=== PATIENT | male | born 1965 | race Caucasian/White ===

== ENCOUNTER 2021-03-20 05:28 | Outpatient (RCR) | payer OTHER ==
[~2021-03-20] VITALS: Ht 172.7 cm; Wt 72.7 kg
[~2021-03-20 05:28] MED LIST: ALBU2.5V4 INH; FLUT12AE4 IH; OMEP40CA6 PO; RT-ALBUINH IH
== END 2021-03-20 08:59 | disposition home or self-care (01) ==
LOC: PREOP 05:28
PROVIDERS: ATTEND Surgery
DX: Z01.812 Encounter for preprocedural laboratory examination (principal); K21.9 Gastro-esophageal reflux disease without esophagitis; Z20.822 Contact with and (suspected) exposure to COVID-19
CPT/HCPCS: 87635

== ENCOUNTER 2021-03-25 10:52 | Day surgery (SDC) | payer OTHER ==
[~2021-03-25] VITALS: Ht 173 cm; Wt 73.0 kg
[2021-03-25] MEDS ORDERED: LACTATED RINGERS 1,000 ML IV ONE (10:56)
[2021-03-25 11:05] VITALS: BP 126/81
[2021-03-25] MEDS ORDERED: HURRICAINE EXT TUBE (BENZOCAINE) XX PRN (11:15)
[2021-03-25] MEDS ORDERED: MIDAZOLAM 2 MG/2 ML (VERSED) VIAL ONE (11:22)
[2021-03-25] MEDS ORDERED: PROPOFOL INJECTION 50 ML IV ONE (11:22)
--- NOTE | 2021-03-25 11:24 | Progress Note-Pre Operative ---
Pre-Operative Progress Note H&P Reviewed The H&P was reviewed, patient examined and no changes noted. Date Seen by Provider: Mar 25, 2021 Time Seen by Provider: 11:24 Date H&P Reviewed: Mar 25, 2021 Time H&P Reviewed: 11:24 Pre-Operative Diagnosis: gerd, hx polyps MARSHAL LIND DO Mar 25, 2021 11:24
[2021-03-25 12:05] VITALS: BP 94/56
[2021-03-25 12:10] VITALS: BP 84/56
--- NOTE | 2021-03-25 12:21 | Discharge Inst-Simple/Standard ---
Discharge Inst-Standard Patient Instructions/Follow Up Plan of Care/Instructions/FU: 2 weeks Otoniel Activity as Tolerated: Yes Discharge Diet: Regular Diet MARSHAL LIND DO Mar 25, 2021 12:21
--- NOTE | 2021-03-25 12:22 | Progress Note-Post Operative ---
Post-Operative Progess Note Surgeon (s)/Underwriting Assistant (s) Surgeon MARSHAL LIND DO Underwriting Assistant: na Pre-Operative Diagnosis gerd, hx polyps Post-Operative Diagnosis sliding hiatal hernia, diverticulosis Procedure & Operative Findings Date of Procedure 03/25/21 Procedure Performed/Findings egd c biopsies, colonoscopy Anesthesia Type per network firewall engineer Estimated Blood Loss Estimated blood loss (mL): none Specimens/Packing Specimens Removed antrum, ge MARSHAL LIND DO Mar 25, 2021 12:22
[2021-03-25 12:58] VITALS: BP 99/58
--- NOTE | 2021-03-25 13:51 | Anesthesia-General Post-Op ---
MAC Patient Condition Mental Status/LOC: Same as Preop Cardiovascular: Satisfactory Nausea/Vomiting: Absent Respiratory: Satisfactory Pain: Controlled Complications: Absent Post Op Complications Complications None Follow Up Care/Instructions Patient Instructions None needed. Anesthesiology Discharge Order Discharge Order Patient is doing well, no complaints, stable vital signs, no apparent adverse anesthesia problems. No complications reported per nursing. DENISHA MILLIGAN CRNA Mar 25, 2021 13:51
--- NOTE | 2021-03-25 16:47 | OPERATIVE REPORT ---
DATE OF SERVICE: 03/25/2021 PREOPERATIVE DIAGNOSES: Gastroesophageal reflux disease, history of polyps. POSTOPERATIVE DIAGNOSES: Sliding hiatal hernia, diverticulosis. PROCEDURE: EGD with biopsies, colonoscopy. SURGEON: Marshal Frederick DO ANESTHESIA: Per REFRIGERATING MACHINE OPERATOR. ESTIMATED BLOOD LOSS: None. COMPLICATIONS: None. SPECIMENS: Antrum, GE junction. INDICATIONS: The patient is a 55-year-old male with GERD symptoms and history of polyps. He understands risks and benefits of procedure and wishes to proceed. Consent was signed in the chart. DESCRIPTION OF PROCEDURE: The patient was taken to the endoscopy suite, placed in left lateral recumbent position. Timeout was performed. Scope was inserted in mouth, down the esophagus, stomach and into the duodenum without difficulty. No polyps, masses or ulcerations. Scope was slowly retracted back to stomach where it was further insufflated. Biopsy of the antrum was obtained. No polyps, masses or ulcerations. Scope was retroflexed noting a sliding hiatal hernia small. No other pathology noted. Scope was returned to its normal position, slowly withdrawn to distal esophagus. Biopsy of the GE junction was obtained. No polyps, masses or ulcerations. Scope was slowly retracted back until completely removed. Digital rectal exam was performed and palpable polyps, masses or ulcerations. Scope was inserted in the rectum and advanced all the way to the cecum with minimal difficulty. Prep was adequate. Scope was slowly retracted back. No polyps, masses or ulcerations within the cecum, ascending, transverse, descending and sigmoid colon. The sigmoid colon had some diverticulosis present. Scope was continuously retracted back into the rectum, where it was also retroflexed noting no other pathology. Scope was returned to its normal position, slowly withdrawn until completely removed. The patient tolerated procedure well without any complications. He was taken to recovery room in stable condition. RECOMMENDATIONS: The patient will need repeat colonoscopy in 5 years due to history of polyps. We will follow up on biopsies in a couple of weeks to discuss further management of his GERD symptoms. Job ID: [id number] DocumentID: [id number] Dictated Date: 03/25/2021 12:24:52 Food Order Delivery Runner Date: 03/25/2021 16:47:32 Dictated By: MARSHAL FREDERICK DO
== END 2021-03-25 13:05 | disposition home or self-care (01) ==
LOC: ENDO 10:52
PROVIDERS: ATTEND Surgery
DX: K21.00 Gastro-esophageal reflux disease with esophagitis, without bleeding (principal); K44.9 Diaphragmatic hernia without obstruction or gangrene; K57.30 Diverticulosis of large intestine without perforation or abscess without bleeding; J43.9 Emphysema, unspecified; F17.210 Nicotine dependence, cigarettes, uncomplicated; Z86.010 Personal history of colon polyps; Z79.899 Other long term (current) drug therapy; Z90.89 Acquired absence of other organs
CPT/HCPCS: 88305

== ENCOUNTER → 2022-04-09 | Outpatient (CLI) | payer OTHER ==
[~2022-04-09] MED LIST changes: +ALBU8.5H6 IH; -RT-ALBUINH IH
--- NOTE | 2022-04-09 13:32 | Diagnostic Imaging Report ---
PROCEDURE: MRI lumbar spine without contrast. TECHNIQUE: Multiplanar, multisequence MRI of the lumbar spine was performed without contrast. INDICATION: Chronic low back pain. COMPARISON: None. FINDINGS: Five lumbar-type vertebral bodies are visualized with the last well-formed disc space designated L5-S1. No acute fracture or dislocation is seen in the lumbar spine. There is grade 1-2 anterolisthesis of L5 on S1. Modic type I endplate degenerative changes are present at the L5-S1 level. Modic type I endplate degenerative changes are also present at the T11-T12 level. No suspicious focal osseous lesions. The conus terminates at the L1 level. No masses are seen associated with the conus or nerve roots of the cauda equina. No epidural collections are identified. Multilevel degenerative changes are seen in the lumbar spine with disc bulges, facet hypertrophy, and buckling of the ligamentum flavum. T12-L1: No significant spinal canal or foraminal stenosis. L1-L2: No significant spinal canal or foraminal stenosis. L2-L3: Broad-based disc bulge and facet hypertrophy result in [id number] spinal canal narrowing with no right and mild left foraminal narrowing. L3-L4: Facet hypertrophy and buckling of the ligamentum flavum result in mild spinal canal narrowing and [id number]-pt-wtybgarf bilateral foraminal narrowing. L4-L5: Broad-based disc bulge, facet hypertrophy, and buckling of the ligamentum flavum result in mild spinal canal narrowing and nbzr-qy-hwixmsqz bilateral foraminal narrowing. L5-S1: Broad-based disc bulge, facet hypertrophy, and buckling of the ligamentum flavum result in no significant spinal canal narrowing and [id number]-[id number] bilateral foraminal stenosis. Paravertebral soft tissues are unremarkable. IMPRESSION: 1. No acute fracture or dislocation in the lumbar spine. 2. Multilevel degenerative changes in the lumbar spine, greatest at L5-S1 with high-grade bilateral foraminal stenosis. 3. Grade 1-2 anterolisthesis of L5 on S1. 4. Modic type I endplate degenerative changes at the T11-T12 and L5-S1 levels. Dictated by: Dictated on workstation # [id number]
== END ==
LOC: RAD 09:30
PROVIDERS: ATTEND Nurse Practitioner
DX: M47.814 Spondylosis without myelopathy or radiculopathy, thoracic region (principal); M47.816 Spondylosis without myelopathy or radiculopathy, lumbar region; M47.817 Spondylosis without myelopathy or radiculopathy, lumbosacral region; M48.061 Spinal stenosis, lumbar region without neurogenic claudication; M48.07 Spinal stenosis, lumbosacral region; M43.17 Spondylolisthesis, lumbosacral region
CPT/HCPCS: 72148